=== PATIENT | male | born 1935 | race Caucasian/White ===

== ENCOUNTER 2017-05-28 19:40 | Emergency (ER) | payer OTHER ==
[~2017-05-28 19:40] MED LIST: ADV100/50 INH; ALDACTONE25 MG PO; AMLODIPINE5 M1 PO; ASPIR 8181 MG PO; COZAAR100 MG PO; FLO4 PO; HYDROCHLOROTH12.5 MG PO; LABETALOL PO; LAC PO; LEVAQUIN LEVA-750 M1 PO; LIPI10 PO; MEDDP PO; METFORMIN ER500 M1 PO; MOTRIN800 MG PO; NOR10T PO; PROAIR HFA0.09 MG/A1 INH; TAMSULOSIN HCL0.4 MG PO; TEGRETOL200 MG PO
[2017-05-28 21:14] VITALS: BP 154/86
== END 2017-05-28 21:14 | disposition home or self-care (01) ==
LOC: ED 19:40
DX: G50.0 Trigeminal neuralgia (principal); I10 Essential (primary) hypertension; E78.00 Pure hypercholesterolemia, unspecified

== ENCOUNTER 2017-06-15 11:08 | Emergency (ER) | payer OTHER ==
[~2017-06-15] VITALS: Ht 165.1 cm; Wt 85.7 kg
[2017-06-15 15:12] VITALS: BP 141/66
== END 2017-06-15 15:12 | disposition home or self-care (01) ==
LOC: ED 11:08
DX: R51 Headache (principal); E78.5 Hyperlipidemia, unspecified; I10 Essential (primary) hypertension; Z79.1 Long term (current) use of non-steroidal anti-inflammatories (NSAID); Z79.899 Other long term (current) drug therapy; Z98.890 Other specified postprocedural states
CPT/HCPCS: J1885; J2270; Q0162

== ENCOUNTER 2017-11-06 09:36 | Emergency (ER) | payer OTHER ==
[~2017-11-06] VITALS: Ht 165.1 cm; Wt 85.7 kg
[2017-11-06 09:40] VITALS: Ht 165.1 cm; Wt 85.7 kg
[2017-11-06 11:40] VITALS: BP 127/74
== END 2017-11-06 11:40 | disposition home or self-care (01) ==
LOC: ED 09:36
DX: G50.0 Trigeminal neuralgia (principal); E78.5 Hyperlipidemia, unspecified
CPT/HCPCS: J1885

== ENCOUNTER 2017-11-19 13:16 | Emergency (ER) | payer OTHER ==
[~2017-11-19] VITALS: Ht 165.1 cm; Wt 81.2 kg
[2017-11-19 13:39] VITALS: Ht 165.1 cm; Wt 81.2 kg
[2017-11-19 15:00] VITALS: BP 156/71
== END 2017-11-19 15:00 | disposition home or self-care (01) ==
LOC: ED 13:16
DX: G50.0 Trigeminal neuralgia (principal); I10 Essential (primary) hypertension; E78.5 Hyperlipidemia, unspecified; Z86.73 Personal history of transient ischemic attack (TIA), and cerebral infarction without residual deficits
CPT/HCPCS: J3010

== ENCOUNTER 2018-02-06 14:47 | Emergency (ER) | payer OTHER, MEDICARE ==
[~2018-02-06] VITALS: Ht 165.1 cm; Wt 81.7 kg
[2018-02-06 14:55] VITALS: Ht 165.1 cm; Wt 81.7 kg
[2018-02-06 16:30] VITALS: BP 153/66
== END 2018-02-06 16:30 | disposition home or self-care (01) ==
LOC: ED 14:47
DX: S01.112A Laceration without foreign body of left eyelid and periocular area, initial encounter (principal); S80.212A Abrasion, left knee, initial encounter; S80.211A Abrasion, right knee, initial encounter; S09.90XA Unspecified injury of head, initial encounter; I10 Essential (primary) hypertension; W22.8XXA Striking against or struck by other objects, initial encounter; Y93.89 Activity, other specified; Y92.89 Other specified places as the place of occurrence of the external cause; Y99.8 Other external cause status
CPT/HCPCS: 90715; J2001

== ENCOUNTER 2018-02-15 11:27 | Emergency (ER) | payer OTHER, MEDICARE ==
[~2018-02-15] VITALS: Ht 165.1 cm; Wt 78.9 kg
[2018-02-15 11:33] VITALS: Ht 165.1 cm; Wt 78.9 kg
[2018-02-15 12:12] VITALS: BP 110/52
== END 2018-02-15 12:12 | disposition home or self-care (01) ==
LOC: ED 11:27
DX: S05.32XD Ocular laceration without prolapse or loss of intraocular tissue, left eye, subsequent encounter (principal); X58.XXXD Exposure to other specified factors, subsequent encounter; I10 Essential (primary) hypertension

== ENCOUNTER 2018-08-22 13:24 | Emergency (ER) | payer OTHER, MEDICARE ==
[~2018-08-22] VITALS: Ht 162.6 cm; Wt 80.3 kg
[2018-08-22 13:58] VITALS: Ht 162.6 cm; Wt 80.3 kg
[2018-08-22 18:17] LABS: BASOPHIL % 0.6 % (0-2); PLATELET COUNT 267 x10^3mcL (130-400); RED CELL DISTRIBUTION WIDTH 13.8 % (11.5-14.5)
[2018-08-22 18:24] LABS: CALCIUM 9.2 mg/dL (8.5-10.1); CARBON DIOXIDE 31.5 mmol/L (21-32); CHLORIDE SERUM 100 mmol/L (98-107); CREATININE SERUM 0.9 mg/dL (0.7-1.3); GLUCOSE SERUM 120 mg/dL (74-106); POTASSIUM SERUM 4.4 mmol/L (3.5-5.1); SODIUM SERUM 139 mmol/L (136-145)
[2018-08-22 20:32] VITALS: BP 183/95
== END 2018-08-22 20:32 | disposition home or self-care (01) ==
LOC: ED 13:24
PROVIDERS: Emergency Medicine
DX: G50.0 Trigeminal neuralgia (principal); I10 Essential (primary) hypertension; E78.5 Hyperlipidemia, unspecified
CPT/HCPCS: J2270

== ENCOUNTER 2018-10-06 09:44 | Emergency (ER) | payer OTHER, MEDICARE ==
[~2018-10-06] VITALS: Ht 165.1 cm; Wt 77.2 kg
[2018-10-06 10:08] VITALS: Ht 165.1 cm; Wt 77.2 kg
[2018-10-06 12:32] VITALS: BP 158/79
== END 2018-10-06 12:32 | disposition home or self-care (01) ==
LOC: ED 09:44
DX: G50.0 Trigeminal neuralgia (principal); I10 Essential (primary) hypertension; E78.5 Hyperlipidemia, unspecified
CPT/HCPCS: J3010